=== PATIENT | female | born 1995 | race Hispanic/Latino ===

== ENCOUNTER 2017-12-01 22:36 | Day surgery (SDC) | payer BC, OTHER ==
[2017-12-01] MEDS ORDERED: Ondansetron ODT 4 MG TAB PO PRN (23:05)
--- NOTE | 2017-12-01 23:05 | PDOC.EVN ---
Event Note - Event Note Event Note: Triage: Here for abdominal pain and emesis at 20 weeks, sees Dr Lennon. EDC is April 18...EGA 20 weeks 2 days Patient seen and examined HPI: 22 yo citizen of [place] speaking SAB2 (one D&C, one cytotec) here for occassional pelvic pressure but no dsch, no ROM, no VB. Good FM. No fevers, no GI or urine sxs. ROS: complete ROS done and as per HPI. Allergies: none OB Hx: X 1, HX uti this but no sxs now Meds: PNV Social: negative X 3 PHYSICAL: Vitals pending as she just arrived, and I saw her as she [facility]. NAD Abd soft, NT No RUQ pain to palpation UT NT, at umbilicus Doppler FHTS pending Cervix pending RN exam Assessment: 20 weeks 2 days abdominal pain NOS Plan: 1. NAD..clinically stable 2. Ordered CBC, CMP, RUQ sono 3. No sxs of UTI 4. Zofran PRN 5. Check CX 6. If all workup negative, ok for outpatient follow up
[2017-12-01 23:22] LABS: #Basophils 0.1 thou/uL (0.0-0.2); #Eosinphils 0.2 thou/uL (0.0-0.7); #Monocytes 0.6 thou/uL (0.11-0.59); #Neutrophils 6.5 thou/uL (1.40-6.50); %Basophils 0.7 % (0.0-1.0); %Eosinophils 2.1 % (0.0-10.0); %Lymphocytes 21.7 % (21.0-51.0); %Monocytes 6.1 % (0.0-10.0); %Neutrophils 69.5 % (42.0-75.0); Hemoglobin 11.1 g/dL (12.0-16.0); Mean Corpuscular HGB CONC 36.3 g/dL (32.0-36.0); Mean Corpuscular Hemoglobin 37.8 pg (27.0-31.0); Mean Platelet Volume 6.6 fL (7.4-10.4); Platelet Count 299 thou/uL (130-400); RBC Distribution Width 12.1 % (11.5-14.5); Red Blood Cell (RBC) Count 2.93 mill/uL (4.20-5.40); White Blood Cell (WBC) Count 9.4 thou/uL (4.8-10.8)
[2017-12-01 23:38] LABS: ALT (SGPT) 23 U/L (8-55); AST (SGOT) 20 U/L (5-34); Albumin 3.9 g/dL (3.5-5.0); Alkaline Phosphatase 74 U/L (40-150); Anion Gap 13 mmol/L (10-20); BUN (Urea Nitrogen) 9 mg/dL (7.0-18.7); Bilirubin, Total 0.3 mg/dL (0.2-1.2); Calc. Creatinine Clearance 0 mL/min (70-130); Calcium 9.2 mg/dL (7.8-10.44); Carbon Dioxide 22 mmol/L (22-29); Chloride 106 mmol/L (98-107); Estimated GFR-MDRD Greater than 90; Globulin 3.2 g/dL (2.4-3.5); Glucose 87 mg/dL (70-105); Potassium 3.5 mmol/L (3.5-5.1); Protein, Total 7.1 g/dL (6.0-8.3); Sodium 137 mmol/L (136-145)
--- NOTE | 2017-12-02 00:37 | PDOC.EVN ---
Event Note - Event Note Event Note: @ 0030 2/...labs and RUQ sono normal. OK for dsch. Vitals stable.
--- NOTE | 2017-12-02 07:28 | ULT ---
RIGHT UPPER QUADRANT ABDOMINAL ULTRASOUND: HISTORY: Upper abdominal pain. The patient is 20 weeks . TECHNIQUE: Multiplanar, wayne scale, and color Doppler images were obtained in a right upper quadrant abdominal u ltrasound. FINDINGS: The liver is normal in echogenicity without focal lesions or intrahepatic ductal dilatation. The gal lbladder is normal without stones, sludge, gallbladder wall thickening, o pericholecystic fluid. The common bile duct is normal measuring 3 mm. The visualized portions of the pancreas are unremarkable. There is moderate hydronephrosis in the ri ght kidney which may be secondary to compression of the head on the distal ureter. The right k idney demonstrates normal cortical echogenicity and measures 10.4 cm in length. The right ureteral j et was seen within the urinary bladder. IMPRESSION: Moderate right hydronephrosis. POS: PRIYANKA
== END 2017-12-02 00:43 | disposition home or self-care (01) ==
LOC: EEVIPCON 22:36 → L&D/OP 22:36
PROVIDERS: ATTEND Obstetrics & Gynecology
DX: O99.89 Other specified diseases and conditions complicating pregnancy, childbirth and the puerperium (principal); R10.9 Unspecified abdominal pain; O21.9 Vomiting of pregnancy, unspecified; Z3A.20 20 weeks gestation of pregnancy; Z79.899 Other long term (current) drug therapy; Z87.440 Personal history of urinary (tract) infections
CPT/HCPCS: 36415; 76705; 80053; 85025; 99283

== ENCOUNTER 2018-04-21 04:33 | Inpatient (IN) | payer BC, MEDICAID ==
[2018-04-21 05:13] VITALS: BMI 24.7
[2018-04-21 05:36] LABS: Amnisure Internal Control QC ACCEPTABLE (ACCEPTABLE)
[2018-04-21 05:45] LABS: Amnisure Test RUPTURE DETECTED (No Rupture)
--- NOTE | 2018-04-21 06:34 | PDOC.LDHP ---
Labor and Delivery H&P Chief complaint: loss of fluid HPI: Patient of Dr sharp (not available) Here for LOF at 0340 trhis AM EGA= 39-40 weeks Patient is a 22 yo at term with SROM and irregular CTX. No complications,. no VB, good FM, no fevers. Review of Systems: complete ROS performed and as per HPI. Current gestational age (weeks): 39 (6 days) Due date: 04/22/18 Grav: 4 Para: 1 OB History Details: 2 SABs Current complications: none Abnormal US findings: No Current medications: pre- vitamins Previous surgical history: none Allergies/Adverse Reactions: Allergies Allergy/AdvReac Type Severity Reaction Status Date / Time No Known Allergies Allergy Verified 04/21/18 05:11 Social history: none - Physical Exam Vital signs reviewed and normal: yes General: NAD Heart: RRR Lungs: CTAB Abdomen: gravid FHT: category 1 [place] contractions every: every 4-6 - Vaginal Exam cm dilated: 2 (amnisure positive) Effacement: 50% Station: -1 - Assessment L&D Assessment: term patient in labor - Plan Plan: admit to L&D, informed consent obtained, anesthesia consult for pain management, other (GBS negative. Full term with latent labor (PROM). We will augment with pitocin.)
[2018-04-21] MEDS ORDERED: Promethazine HCl 25 MG/ML VIAL IM PRN ×2 (06:39→11:49)
[2018-04-21] MEDS ORDERED: Acetaminophen 500 MG TAB PO PRN (06:39)
[2018-04-21] MEDS ORDERED: Ondansetron HCl/PF 4 MG/2 ML Vial IVP PRN ×3 (06:39→16:33)
[2018-04-21] MEDS ORDERED: Lactated Ringer's 1,000 ML IV PRN (06:42)
[2018-04-21] MEDS ORDERED: NS w/ Oxytocin 10 units 500 ML IV SCH (06:45)
[2018-04-21 06:58] LABS: Hemoglobin 13.1 g/dL (12.0-16.0); Mean Corpuscular HGB CONC 35.3 g/dL (32.0-36.0); Mean Corpuscular Hemoglobin 36.5 pg (27.0-31.0); Mean Platelet Volume 7.3 fL (7.4-10.4); Platelet Count 270 thou/uL (130-400); RBC Distribution Width 12.5 % (11.5-14.5); Red Blood Cell (RBC) Count 3.58 mill/uL (4.20-5.40); White Blood Cell (WBC) Count 7.9 thou/uL (4.8-10.8)
[2018-04-21 07:36] LABS: HBSAg Index 0.18 S/CO (0-0.99); Hep B Surf Ag Non-Reactive S/CO (NonReactive)
[2018-04-21] MEDS: Butorphanol Tartrate 1 MG/ML VIAL SLOW IVP PRN ×2 (09:58→11:20)
[2018-04-21] MEDS ORDERED: DISCONTINUE ALL PREVIOUS NARCOTICS FS SCH (10:45)
[2018-04-21] MEDS ORDERED: Bupivacaine 0.75% 13.4 ML, fentaNYL Citrate/PF 400 MCG in Sodium Chloride 0.9% 78.6 ML EPIDURAL SCH (10:45)
[2018-04-21] MEDS ORDERED: Bupivacaine 0.25% HCL 30 ML VIAL ONE (11:11)
[2018-04-21] MEDS ORDERED: Butorphanol Tartrate 1 MG/ML VIAL ONE (11:17)
[2018-04-21] MEDS ORDERED: ePHEDrine/0.9% NaCl/PF SYRINGE 50 mg/10 ml SLOW IVP PRN (11:49)
[2018-04-21] MEDS ORDERED: diphenhydrAMINE 50 MG/ML VIAL IVP PRN (11:49)
[2018-04-21] MEDS ORDERED: Lactated Ringer's 500 ML IV PRN (11:49)
[2018-04-21] MEDS ORDERED: Naloxone HCl 0.4 mg/ml Vial IVP PRN ×2 (11:49)
[2018-04-21] MEDS ORDERED: Eucerin (Mineral Oil/Petrolatum,White) 30 gm Jar TOP PRN (11:49)
[2018-04-21] MEDS ORDERED: Acetaminophen 325 MG TAB PO PRN (11:49)
[2018-04-21] MEDS: Lactated Ringer's 1,000 ML IV SCH (11:52)
[2018-04-21] MEDS ORDERED: Communication Order-Pharmacy FS SCH (12:00)
[2018-04-21] MEDS ORDERED: Fentanyl 4mcg/Marcaine 0.1% Cassette 100 ML EPIDURAL SCH (12:00)
[2018-04-21] MEDS ORDERED: NS / Oxytocin 40 units/1000ml 1,000 ML ONE ×3 (13:48→14:57)
[2018-04-21] MEDS ORDERED: NS / Oxytocin 40 units/1000ml 0 ML ONE ×2 (14:53→14:55)
[2018-04-21] MEDS ORDERED: Oxytocin 10 UNITS/ML VIAL ONE (14:53)
[2018-04-21] MEDS ORDERED: Lanolin Ointment 7 GM TUBE TOP PRN (16:33)
[2018-04-21] MEDS ORDERED: NS / Oxytocin 40 units/1000ml 1,000 ML IV SCH (16:33)
[2018-04-21] MEDS ORDERED: diphenhydrAMINE 25 MG CAP PO PRN (16:33)
[2018-04-21] MEDS ORDERED: Bisacodyl 10 MG SUPP PR PRN (16:33)
[2018-04-21] MEDS ORDERED: Milk Of Magnesia 30 ML UDCUP PO PRN (16:33)
[2018-04-21] MEDS: Ferrous Sulfate 325 MG TAB PO SCH (17:11)
--- NOTE | 2018-04-21 20:50 | OP ---
DELIVERY NOTE Ms. Oscar delivered a male infant at 39 weeks and 6 days on 04/21/2018 at 1356 hours by an uncomplicat ed term spontaneous vaginal delivery. Placenta delivered spontaneously followed by Pitocin infusion. Apgars were 9 and 9. Weight is unavailable at time of dictation. Estimated blood loss is 200 mL. There were no lacerations. Dr. Hayden is the delivering physician. Both mother and baby were stab le in the immediate . Counts were correct. Of note, there was nuchal cord x1.
[2018-04-21] MEDS: Docusate Calcium (SURFAK) 240 MG CAP PO SCH (21:00)
[2018-04-21] MEDS: Ibuprofen 800 MG TAB PO SCH (21:00)
[2018-04-22] MEDS: Ibuprofen 800 MG TAB PO SCH ×2 (04:16→14:19)
[2018-04-22 07:10] LABS: Hemoglobin 11.4 g/dL (12.0-16.0); Mean Corpuscular HGB CONC 33.5 g/dL (32.0-36.0); Mean Corpuscular Hemoglobin 35.5 pg (27.0-31.0); Mean Platelet Volume 7.2 fL (7.4-10.4); Platelet Count 243 thou/uL (130-400); RBC Distribution Width 12.4 % (11.5-14.5); Red Blood Cell (RBC) Count 3.22 mill/uL (4.20-5.40); White Blood Cell (WBC) Count 9.3 thou/uL (4.8-10.8)
[2018-04-22] MEDS ORDERED: Adacel (T-DAP) 0.5 ML VIAL IM ONE (09:00)
[2018-04-22] MEDS ORDERED: Prenatal Vitamin 1 TAB PO SCH (09:00)
[2018-04-22 09:27] VITALS: BP 101/59; TEMP 98.3
[2018-04-22] MEDS: Ferrous Sulfate 325 MG TAB PO SCH (09:38)
[2018-04-22] MEDS: Docusate Calcium (SURFAK) 240 MG CAP PO SCH (09:44)
--- NOTE | 2018-04-22 17:16 | DIS ---
DATE OF ADMISSION: 04/20/2018 DATE OF DISCHARGE: 04/22/2018 ADMITTING DIAGNOSIS: Spontaneous rupture of membranes. DISCHARGE DIAGNOSIS: Spontaneous rupture of membranes. PROCEDURE: Term spontaneous vaginal delivery. HOSPITAL COURSE: The patient is a 22-year-old female with an intrauterine at 39 weeks, who was admitted to the hospital after being diagnosed with spontaneous rupture of membranes. Her labor was augmented with Pitocin and had a successful term spontaneous vaginal delivery. The patient was sent to for routine recovery. She reports that she is tolerating p.o., voiding on her own , having decreased lochia, and having good pain control. She is interested in going home this aftern oon if baby is released. HISTORY OF PRESENT ILLNESS: VITAL SIGNS: Blood pressure is 107/57, temperature 98.4, pulse of 72, respiratory rate of 16. GENERAL: She appears to be in no acute distress. She is alert and oriented, cooperative and pleasan t to interact with. HEENT: Normocephalic, atraumatic. ABDOMEN: Soft. Fundus is firm. EXTREMITIES: Nontender, nonedematous. LABORATORY DATA: hemoglobin is 11.4, hematocrit 34.1, platelets 243,000. DISCHARGE INSTRUCTIONS: The patient will be discharged to home. She has instructions to follow up w ith her primary OB, Dr. Lennon in 6 weeks. She has instructions to seek medical attention sooner if she experiences fever, increasing pain or bleeding. She will be discharged home with ibuprofen as ne eded for pain. Discharge will be held until tomorrow if baby is not released today.
== END 2018-04-22 15:40 | disposition home or self-care (01) | DRG 775 ==
LOC: L&D/OP 04:33 → L&D 05:48 → 3SW 16:31
PROVIDERS: ADMIT Obstetrics & Gynecology; ATTEND Obstetrics & Gynecology
PROC: 10E0XZZ Delivery of Products of Conception, External Approach (ICD-10-PCS; principal; 2018-04-21)
PROC: 3E033VJ Introduction of Other Hormone into Peripheral Vein, Percutaneous Approach (ICD-10-PCS; 2018-04-21)
DX: O42.02 Full-term premature rupture of membranes, onset of labor within 24 hours of rupture (principal); Z3A.39 39 weeks gestation of pregnancy; O69.81X0 Labor and delivery complicated by cord around neck, without compression, not applicable or unspecified; Z37.0 Single live birth
CPT/HCPCS: 36415; 51702; 84112; 85027; 86850; 86900; 86901; 87340; 99285; J0595; J2590; J3010; J7050; S0020